=== PATIENT | male | born 1990 | race African-American/Black ===

== ENCOUNTER 2024-08-15 09:55 | Day surgery (SDC) | payer BC ==
[2024-08-15] MEDS ORDERED: Lactated Ringers 500 ML IV ONE (10:18)
[2024-08-15] MEDS ORDERED: propofoL IV ONE ×2 (11:34→11:48)
--- NOTE | 2024-08-15 15:21 | XRAY ---
17 seconds of fluoroscopy was used in surgery for a left C2-C4 MBB.
--- NOTE | 2024-08-15 15:24 | XRAY ---
Indication: Left C2-C4 MBB. Intraoperative fluoroscopy provided for 17 seconds. 3 digital spot images submitted for interpretation demonstrates posterior needle tips projecting over expected left C2-C4 nerve roots. Correlate with intraoperative findings/report.
== END 2024-08-15 12:19 | disposition home or self-care (01) ==
LOC: SDC-PAIN 09:55
PROVIDERS: ATTEND Psychiatry & Neurology Pain Medicine
DX: M47.812 Spondylosis without myelopathy or radiculopathy, cervical region (principal)
CPT/HCPCS: 72040; 77002; J2704